=== PATIENT | female | born 1990 | race African-American/Black ===

== ENCOUNTER 2021-10-29 02:40 | Emergency (ER) | payer SELFPAY ==
[~2021-10-29] VITALS: Ht 157.5 cm; Wt 53.5 kg
[2021-10-29 02:50] VITALS: BP 133/79
[2021-10-29] MEDS ORDERED: IBUPROFEN 600 MG TAB PO ONE ×2 (03:00→04:00)
--- NOTE | 2021-10-29 03:02 | NUR ---
PT AMBULATED TO BED #8
--- NOTE | 2021-10-29 03:06 | NUR ---
30 YO/F BIB SELF W C/O OF ONGOING DRY COUGH X25 DAYS, +TAMEZ 09/07 + CHEST DISCOMFORT WHICH PT RELATES TO COUGHING SO MUCH. PT REPORTS SEEING PCP ON 10/05/21 WAS GIVEN ABX AND TESSALON BUT SYMPTOMS HAVE NOT IMPROVED. PT DENIES FEVERS, CHILLS, CONGESTION, N/V/D. PT DOES NOT WANT PAIN MEDICATION AT THIS TIME. BREATHING EVEN ANDUNLABORED. NAD NOTED, WILL CONTINUE TO MONITOR. ALLERGIES: COUGH DROPS, ROBITUSSIN PMH:DENIES
--- NOTE | 2021-10-29 03:14 | NUR ---
X-Ray at bedside.
[2021-10-29] MEDS ORDERED: IBUP-2213 PO (03:44)
[2021-10-29] MEDS ORDERED: BENZ200C4 PO (03:44)
[2021-10-29] MEDS ORDERED: CODE10LI2 PO (03:44)
[2021-10-29] MEDS ORDERED: IBUPROFEN 600 MG TAB ONE (04:06)
[2021-10-29 04:18] VITALS: BP 133/79
--- NOTE | 2021-10-29 04:18 | NUR ---
Patient discharged with v/s stable. Written and verbal after care instructions given and explained. Patient alert, oriented and verbalized understanding of instructions. Ambulatory with steady gait. All questions addressed prior to discharge. ID band removed. Patient advised to follow up with PMD. Rx of BENZONATATE, IBUPROFEN given. Patient educated on indication of medication including possible reaction and side effects. Opportunity to ask questions provided and answered.
== END 2021-10-29 04:18 | disposition home or self-care (01) ==
LOC: MED 02:40
DX: R05.9 Cough, unspecified (principal)
CPT/HCPCS: 71045; 93005; 99283; Q0092